=== PATIENT | female | born 1975 | race Asian ===

== ENCOUNTER 2024-04-07 09:48 | Emergency (ER) | payer OTHER ==
[~2024-04-07] VITALS: Ht 152.4 cm; Wt 56.8 kg
[2024-04-07] MEDS ORDERED: LEVO25TA9 PO (09:52)
[2024-04-07] MEDS ORDERED: LOSA-382 PO (09:52)
[2024-04-07] MEDS ORDERED: AMLO-257 PO (09:52)
[2024-04-07 09:53] VITALS: TEMP 98.2
[2024-04-07] MEDS: AmLODIPine BESYLATE 10 MG TABLET PO ONE (11:17)
[2024-04-07] MEDS: ACETAMINOPHEN 500 MG TABLET PO ONE (11:17)
[2024-04-07 11:44] LABS: BASOPHILS % (AUTO) 1.1 % (0.0-2.0); EOSINOPHILS % (AUTO) 0.7 % (1.0-6.0); HEMATOCRIT 38.3 % (36-46); HEMOGLOBIN 12.3 g/dL (12.0-16.0); LYMPHOCYTES # (AUTO) 1.1 K/uL (1.0-4.8); LYMPHOCYTES % (AUTO) 26.2 % (22.0-44.0); MEAN CORPUSCULAR HEMOGLOBIN 21.9 pg (26.0-34.0); MEAN CORPUSCULAR VOLUME 69 fL (80-100); MONOCYTES # (AUTO) 0.2 K/uL (0.1-1.0); NEUTROPHILS # (AUTO) 2.7 K/uL (1.8-7.7); PLATELET COUNT (AUTO) 276 K/uL (150-450); RED BLOOD CELL COUNT(AUTO) 5.59 MIL/uL (4.00-5.20); RED CELL DISTRIBUTION WIDTH 17.9 % (11.5-14.5)
[2024-04-07 11:52] LABS: ANION GAP 9 mmol/L (8-16); CALCIUM, TOTAL 8.9 mg/dL (8.8-10.5); CARBON DIOXIDE 33 mmol/L (22-29); CHLORIDE 104 mmol/L (98-107); CREATININE 0.64 mg/dL (0.60-1.30); GLOMERULAR FILTR. RATE CALC > 60 mL/min (>60); GLUCOSE,RANDOM 116 mg/dL (70-110); SODIUM SERUM 146 mmol/L (136-145); UREA NITROGEN, BLOOD 10 mg/dL (7-18)
[2024-04-07 11:54] LABS: POTASSIUM 2.8 mmol/L (3.5-5.1)
[2024-04-07 12:02] LABS: TROPONIN I-HIGH SENSITIVITY 8 ng/L (<51)
[2024-04-07] MEDS: POTASSIUM CHLORIDE 20 MEQ ER TABLET PO ONE (12:09)
[2024-04-07 13:43] VITALS: BP 155/88; PULSE 84; RESP 16; O2SAT 99
[2024-04-07] MEDS ORDERED: ACET-66 PO (14:08)
[2024-04-07] MEDS ORDERED: POTA8TAB71 PO (14:13)
== END 2024-04-07 14:21 | disposition home or self-care (01) ==
LOC: EMS 09:53
DX: R51.9 Headache, unspecified (principal); E87.6 Hypokalemia; E03.9 Hypothyroidism, unspecified; E78.00 Pure hypercholesterolemia, unspecified; I10 Essential (primary) hypertension; Z79.899 Other long term (current) drug therapy
CPT/HCPCS: 80048; 84484; 85025; 93005; 99284